=== PATIENT | male | born 1955 | race Caucasian/White ===

== ENCOUNTER 2022-05-04 08:20 | Day surgery (SDC) | payer MEDICAID ==
[2022-05-03 13:58] LABS: COVID AG,FIA SOURCE NASAL SWAB
[~2022-05-04] VITALS: Ht 167.6 cm; Wt 72.3 kg
[~2022-05-04 08:20] MED LIST: SODIUM CHLORIDE 0.9% 1,000 ML IV ONE
[2022-05-04] MEDS ORDERED: PROPOFOL 1% 20 ML VIAL IVP ONE (08:21)
[2022-05-04] MEDS ORDERED: SODIUM CHLORIDE 0.9% 1,000 ML ONE (09:05)
== END 2022-05-04 12:00 | disposition home or self-care (01) ==
LOC: SURGERY 08:20
PROVIDERS: ATTEND Internal Medicine Gastroenterology
DX: Z12.11 Encounter for screening for malignant neoplasm of colon (principal); D12.3 Benign neoplasm of transverse colon; D12.7 Benign neoplasm of rectosigmoid junction; D12.8 Benign neoplasm of rectum; K64.0 First degree hemorrhoids; G89.29 Other chronic pain; Z83.3 Family history of diabetes mellitus; Z20.822 Contact with and (suspected) exposure to COVID-19; Z79.899 Other long term (current) drug therapy; Z98.890 Other specified postprocedural states; F17.210 Nicotine dependence, cigarettes, uncomplicated
CPT/HCPCS: 87426; 45385; 45381; C9803; C1769; J2704; J7030

== ENCOUNTER 2022-06-23 08:41 | Day surgery (SDC) | payer MEDICAID ==
[~2022-06-23] VITALS: Ht 167.6 cm; Wt 72.3 kg
[2022-06-23] MEDS ORDERED: PROPOFOL 1% 20 ML VIAL IVP ONE (08:42)
[2022-06-23 09:58] LABS: GLUCOMETER DEV NAME(LOC) SDS.; GLUCOSE,POINT OF CARE 84 MG/DL (70-110)
[2022-06-23] MEDS ORDERED: OXYGEN THERAPY IH SCH (20:00)
== END 2022-06-23 12:00 | disposition home or self-care (01) ==
LOC: SURGERY 08:41
PROVIDERS: ATTEND Specialist
DX: Z12.11 Encounter for screening for malignant neoplasm of colon (principal); D12.2 Benign neoplasm of ascending colon; D12.3 Benign neoplasm of transverse colon; K62.1 Rectal polyp; K64.8 Other hemorrhoids; Z79.899 Other long term (current) drug therapy
CPT/HCPCS: 45385; 88305; 82962; C1769; J2704